=== PATIENT | male | born 1955 | race African-American/Black ===

== ENCOUNTER 2018-02-07 05:50 | Emergency (ER) | payer MEDICAID ==
[~2018-02-07] VITALS: Ht 170.2 cm; Wt 69.0 kg
[2018-02-07] MEDS ORDERED: ACETAMINOPHEN 325MG TABLET PO ONE (07:00)
[2018-02-07] MEDS ORDERED: KETOROLAC 60MG/2ML VIAL IM ONE (08:30)
[2018-02-07 08:40] VITALS: BP 136/76
== END 2018-02-07 08:52 | disposition home or self-care (01) ==
LOC: ER 05:50
DX: R51 Headache (principal); I10 Essential (primary) hypertension; N40.0 Benign prostatic hyperplasia without lower urinary tract symptoms
CPT/HCPCS: 70450; 99284

== ENCOUNTER 2018-02-08 12:02 | Emergency (ER) | payer MEDICAID ==
[~2018-02-08] VITALS: Ht 170.2 cm; Wt 70.0 kg
[2018-02-08] MEDS ORDERED: ONDANSETRON 4MG ODT PO ONE (12:15)
[2018-02-08 12:53] LABS: BASOPHILS % 0.5 % (0.0-2.0); EOSINOPHILS % 0.7 % (0.0-5.0); HEMATOCRIT. 42.6 % (42.0-52.0); HEMOGLOBIN. 14.9 g/dL (14.0-18.0); LYMPHOCYTES % 10.6 % (20.0-50.0); MEAN CORPUSCULAR HEMOGLOBIN 28.7 pg (28.0-32.0); MEAN CORPUSCULAR VOLUME 82.2 fL (80.0-94.0); MEAN PLATELET VOLUME 6.9 fl (7.4-10.4); MONOCYTES % 3.9 % (2.0-8.0); NEUTROPHILS % 84.3 % (40.0-76.0); PLATELET 255 x1000/uL (130-400); RED BLOOD CELL COUNT 5.18 mill/uL (4.7-6.1); RED CELL DISTRIBUTION WIDTH 14.5 % (11.6-14.6)
[2018-02-08 12:56] LABS: CHLORIDE 106 mEq/L (98-107)
[2018-02-08 12:58] LABS: INR 1.1; PARTIAL THROMBOPLASTIN TIME 27.5 sec (23.4-31.0); PROTHROMBIN TIME 11.3 sec (9.4-11.6)
[2018-02-08 13:05] LABS: CREATINE KINASE 115 IU/L (39-308)
[2018-02-08 13:06] LABS: CREATINE KINASE MB FRACTION 1.2 ng/mL (0.5-3.6)
[2018-02-08] MEDS ORDERED: HYDROCODONE/ACETAMINOPHEN 5/325MG TABLET PO ONE (13:15)
[2018-02-08] MEDS ORDERED: IOHEXOL-350 100 ML BOTTLE ONE (15:12)
[2018-02-08 17:08] VITALS: BP 149/106
== END 2018-02-08 18:24 | disposition home or self-care (01) ==
LOC: ER 12:10
DX: R51 Headache (principal); I10 Essential (primary) hypertension; N40.0 Benign prostatic hyperplasia without lower urinary tract symptoms
CPT/HCPCS: 36415; 70450; 70496; 71045; 80053; 82550; 82553; 83690; 83880; 84484; 85025; 85610; 85730; 93005; 99285; Q0162; Q9967; Z7610